=== PATIENT | male | born 1980 | race Caucasian/White ===

== ENCOUNTER 2021-12-06 22:17 | Emergency (ER) | payer OTHER ==
[2021-12-06 22:57] LABS: HEMOGLOBIN 15.2 gm/dl (14.0-17.5); RED BLOOD COUNT 5.19 M/UL (4.20-5.50); WHITE BLOOD COUNT 16.9 K/UL (4.5-11.0)
[2021-12-06 23:35] LABS: BUN/CREATININE RATIO 13 (0-10)
== END 2021-12-07 00:58 | disposition short-term general hospital (02) ==
LOC: ER1 22:17
PROVIDERS: Family Medicine
DX: S02.411A LeFort I fracture, initial encounter for closed fracture (principal); S02.412A LeFort II fracture, initial encounter for closed fracture; S02.413A LeFort III fracture, initial encounter for closed fracture; S02.2XXA Fracture of nasal bones, initial encounter for closed fracture; S02.19XA Other fracture of base of skull, initial encounter for closed fracture; S02.85XA Fracture of orbit, unspecified, initial encounter for closed fracture; S02.40FA Zygomatic fracture, left side, initial encounter for closed fracture; R41.82 Altered mental status, unspecified; Z20.822 Contact with and (suspected) exposure to COVID-19; S05.12XA Contusion of eyeball and orbital tissues, left eye, initial encounter; S05.11XA Contusion of eyeball and orbital tissues, right eye, initial encounter; X58.XXXA Exposure to other specified factors, initial encounter
CPT/HCPCS: 70450; 70486; 71045; 72125; 72170; 80053; 80307; 82550; 82553; 83690; 83735; 83874; 84484; 85025; 85610; 99285; G0480; J2270; J2405; U0002